=== PATIENT | female | born 1960 | race American Indian/Alaskan Native ===

== ENCOUNTER 2016-11-23 10:26 | Outpatient (CLI) | payer OTHER ==
--- NOTE | 2016-11-24 09:47 | Echocardiography Report ---
Transthoracic Echocardiogram Indication: Chemo BP: 157/98 Findings Left Ventricle: The left ventricular chamber size is normal. Mild concentric left ventricular hypertrophy is observed. Global left ventricular wall motion and contractility are within normal limits. Global left ventricular systolic function is normal. The estimated ejection fraction is 50-55%. Normal left ventricular diastolic filling is observed. Left Atrium: The left atrial chamber size is normal. Right Ventricle: The right ventricular cavity size is normal. The right ventricular global systolic function is normal. Right Atrium: The right atrial cavity size is normal. The interatrial septum appears normal. Aortic Valve: The aortic valve is trileaflet. The aortic valve leaflets are mildly thickened. There is trace of aortic regurgitation. There is no evidence of aortic stenosis. Mitral Valve: The mitral valve leaflets appear myxomatous. The mitral valve leaflets are mildly thickened. There is trace of mitral regurgitation. There is no evidence of mitral stenosis. Tricuspid Valve: The tricuspid valve leaflets are normal. There is trace tricuspid regurgitation. No pulmonary hypertension is noted. There is no tricuspid stenosis. Pulmonic Valve: The pulmonic valve appears normal. There is trace pulmonic regurgitation. There is no pulmonic stenosis. Pericardium: There is no pericardial effusion. Aorta: There is no dilatation of the ascending aorta. There is no dilatation of the aortic arch. There is no dilatation of the descending thoracic aorta. There is no dilatation of the aortic root. Venous: The inferior vena cava appears normal in size. Measurements Chambers MM Name Value Normal Range Ao root diameter (MM) 3.4 cm (2 - 3.7) LA dimension (AP) MM 3.7 cm (1.9 - 4) LA:Ao ratio (MM) 1.09 ratio - AV cusp separation (MM) 1.5 cm (1.5 - 2.6) Chambers 2D Name Value Normal Range RVIDd (AP) 2D 3.44 cm (0.9 - 2.6) IVSd (2D) 1.09 cm (0.6 - 1.1) LVPWd (2D) 1.06 cm (0.6 - 1.1) IVS:LVPW ratio (2D) 1.03 ratio - LVIDd (2D) 4.17 cm (3.7 - 5.6) LVIDs (2D) 2.75 cm (2 - 3.8) LV FS (Teichholz) (2D) 34.1 % - LV FS (cube) (2D) 34.1 % - LA dimension (AP) 2D 3.5 cm (1.9 - 4) Volumes/Mass Name Value Normal Range LA ESV SP 4CH (MOD) 32 ml - LA ESV SP 2CH (MOD) 33 ml - LA ESV BP (MOD) 33 ml - LA ESV BP (MOD) index 18.6 ml/m2 - Diastolic/Systolic Function Name Value Normal Range MV E-wave Vmax 0.81 m/sec - MV deceleration time 180 msec - MV A-wave Vmax 0.71 m/sec - MV E:A ratio 1.1 ratio - LV septal e' Vmax 0.07 m/sec - LV lateral e' Vmax 0.09 m/sec - LV E:e' septal ratio 12.4 ratio - LV E:e' lateral ratio 8.6 ratio - Aortic Valve Name Value Normal Range AV VTI 23.1 cm - AV mean gradient 2 mmHg - LVOT diameter 2 cm - LVOT VTI 17.9 cm - LVOT mean gradient 2 mmHg - SV LVOT 56 ml - SHARON (continuity VTI) 2.43 cm2 - Mitral Valve Name Value Normal Range MV PHT 48 msec - MVA (PHT) 4.58 cm2 - Pulmonic Valve/Qp:Qs Name Value Normal Range PV Vmax 0.67 m/sec - PV peak gradient 2 mmHg - TX end-diastolic Vmax 0.92 m/sec -
== END 2016-11-23 10:27 | disposition home or self-care (01) ==
LOC: ECHO 10:26
PROVIDERS: ATTEND Internal Medicine Hematology & Oncology
DX: C50.012 Malignant neoplasm of nipple and areola, left female breast (principal); D64.81 Anemia due to antineoplastic chemotherapy
CPT/HCPCS: 93306

== ENCOUNTER 2017-03-12 08:07 | Outpatient (CLI) | payer OTHER | END 2017-03-12 08:08 | disposition home or self-care (01) | LOC: ECHO 08:07 | PROVIDERS: ATTEND Internal Medicine Hematology & Oncology | DX: I34.0 Nonrheumatic mitral (valve) insufficiency (principal); I07.1 Rheumatic tricuspid insufficiency; I37.1 Nonrheumatic pulmonary valve insufficiency; C50.012 Malignant neoplasm of nipple and areola, left female breast | CPT/HCPCS: 93306 ==

== ENCOUNTER 2017-06-24 11:08 | Outpatient (CLI) | payer OTHER | END 2017-06-24 11:09 | disposition home or self-care (01) | LOC: ECHO 11:08 | PROVIDERS: ATTEND Internal Medicine Hematology & Oncology | DX: C50.012 Malignant neoplasm of nipple and areola, left female breast (principal); D64.81 Anemia due to antineoplastic chemotherapy; I10 Essential (primary) hypertension | CPT/HCPCS: 93306 ==

== ENCOUNTER 2017-07-28 09:59 | Outpatient (CLI) | payer OTHER | END 2017-07-28 10:00 | disposition home or self-care (01) | LOC: ECHO 09:59 | PROVIDERS: ATTEND Internal Medicine Hematology & Oncology | DX: I08.1 Rheumatic disorders of both mitral and tricuspid valves (principal); I10 Essential (primary) hypertension; C50.012 Malignant neoplasm of nipple and areola, left female breast | CPT/HCPCS: 93306 ==